=== PATIENT | female | born 1995 | race Caucasian/White ===

== ENCOUNTER 2018-06-19 15:37 | Emergency (ER) | payer OTHER ==
[~2018-06-19] VITALS: Ht 160 cm; Wt 72.7 kg
[2018-06-19] MEDS ORDERED: AMOX TR/POT CLAV 875 MG/125 MG TABLET PO ONE (17:00)
[2018-06-19 18:00] VITALS: BP 128/79
== END 2018-06-19 18:58 | disposition home or self-care (01) ==
LOC: EMS 15:39
DX: S51.852A Open bite of left forearm, initial encounter (principal); S93.492A Sprain of other ligament of left ankle, initial encounter; S69.81XA Other specified injuries of right wrist, hand and finger(s), initial encounter; R03.0 Elevated blood-pressure reading, without diagnosis of hypertension; W54.0XXA Bitten by dog, initial encounter; Y93.89 Activity, other specified; Y92.89 Other specified places as the place of occurrence of the external cause; Y99.8 Other external cause status
CPT/HCPCS: 29515; 99284